=== PATIENT | male | born 1990 | race Two or more races ===

== ENCOUNTER 2023-03-02 05:47 | Emergency (ER) | payer BC ==
[2023-03-02] MEDS ORDERED: HYDROcodone/Acetaminophen 5/325 mg Tablet ONE (06:24)
[2023-03-02] MEDS ORDERED: Ketorolac Tromethamine 30 MG/ML VIAL ONE (06:24)
== END 2023-03-02 07:16 | disposition home or self-care (01) ==
LOC: ERS 05:47
DX: K08.89 Other specified disorders of teeth and supporting structures (principal); F17.290 Nicotine dependence, other tobacco product, uncomplicated
CPT/HCPCS: 96372; 99282; J1885

== ENCOUNTER 2023-09-09 18:55 | Emergency (ER) | payer BC ==
[2023-09-09] MEDS ORDERED: diphenhydrAMINE 25 MG CAP ONE (19:31)
[2023-09-09 20:37] LABS: #Basophils 0.11 10x3/uL (0.0-0.2); %Basophils 1.2 % (0.0-1.0); %Eosinophils 10.7 % (0.0-10.0); %Lymphocytes 28.5 % (21.0-51.0); %Monocytes 5.6 % (0.0-10.0); %Neutrophils 53.8 % (42.0-75.0); Hemoglobin 16.1 g/dL (14.0-18.0); Mean Corpuscular HGB CONC 34.3 g/dL (32.0-36.0); Mean Corpuscular Hemoglobin 31.2 pg (27.0-31.0); Mean Corpuscular Volume 91.1 fL (78.0-98.0); Mean Platelet Volume 9.7 fL (7.4-10.4); Platelet Count 311 10x3/uL (130-400); Red Blood Cell (RBC) Count 5.16 mill/uL (4.70-6.10)
[2023-09-09 20:54] LABS: ALT (SGPT) 10 U/L (8-55); AST (SGOT) 19 U/L (5-34); Albumin 4.6 g/dL (3.5-5.0); Alkaline Phosphatase 106 U/L (40-110); Anion Gap 11 mmol/L (10-20); BUN (Urea Nitrogen) 11 mg/dL (8.9-20.6); Bilirubin, Total 0.5 mg/dL (0.2-1.2); Calc. Creatinine Clearance 0 mL/min (70-130); Calcium 9.2 mg/dL (7.8-10.44); Carbon Dioxide 26 mmol/L (22-29); Chloride 105 mmol/L (98-107); Estimated GFR 85; Globulin 3.2 g/dL (2.4-3.5); Glucose 105 mg/dL (70-105); Potassium 4.1 mmol/L (3.5-5.1); Protein, Total 7.8 g/dL (6.0-8.3); Sodium 138 mmol/L (136-145)
== END 2023-09-09 21:55 | disposition home or self-care (01) ==
LOC: ERS 18:55
DX: L25.9 Unspecified contact dermatitis, unspecified cause (principal); F17.290 Nicotine dependence, other tobacco product, uncomplicated
CPT/HCPCS: 36415; 80053; 85025; 99283

== ENCOUNTER 2024-05-25 14:40 | Emergency (ER) | payer BC, SELFPAY ==
[2024-05-25] MEDS ORDERED: Bupivacaine PF 0.5% 30 ML VIAL ONE (17:47)
== END 2024-05-25 18:14 | disposition home or self-care (01) ==
LOC: ERS 14:40
DX: K08.89 Other specified disorders of teeth and supporting structures (principal); F17.290 Nicotine dependence, other tobacco product, uncomplicated
CPT/HCPCS: 64400; J0665